=== PATIENT | female | born 1965 | race Caucasian/White ===

== ENCOUNTER 2021-08-15 11:17 | Emergency (ER) | payer OTHER ==
[2021-08-15] MEDS ORDERED: Lactated Ringers 1,000 ML IV ONE (11:44)
[2021-08-15] MEDS ORDERED: Ketorolac 30 MG/ML SDV IVPUSH ONE (11:45)
[2021-08-15] MEDS ORDERED: HYDROmorphone 1 MG/ML Syringe IVPUSH ONE ×2 (11:45→12:59)
[2021-08-15] MEDS ORDERED: Ondansetron 4 MG/2 ML SDV IVPUSH ONE (11:48)
--- NOTE | 2021-08-15 11:50 | EDM.PDOC ---
ED HPI GENERAL MEDICAL PROBLEM - General Chief Complaint: Abdominal Pain Stated Complaint: SEVERE ABDOMINAL PAIN Time Seen by Provider: 08/15/21 11:40 Source of Information: Reports: Patient, RN. Denies: Old Records History Limitations: Reports: Other (no old records) - History of Present Illness INITIAL COMMENTS - FREE TEXT/NARRATIVE: 55 yo female is here with her for abrupt onset of RLQ abdominal pain. Feels a little bloated. No fever or nausea. Has a remote hx of kidney stones. Has had her ovaries removed. Pain is severe. Stools hard and dry and small. Onset: Today, Sudden Onset Date: 08/15/21 Duration: Minutes:, Waxing/Waning Location: Reports: Pelvis (R hemipelvis) Quality: Reports: Stabbing Severity: Severe Improves with: Reports: None Worsens with: Reports: Other (unknown) Context: Reports: Other (See HPI) Associated Symptoms: Reports: No Other Symptoms. Denies: Diaphoresis, Fever/Chills, Nausea/Vomiting Treatments [employer]: Reports: Other (see below) (none) Right Lower Abdomen Pain Score (Numeric/FACES): 10 - Related Data Allergies Allergy/AdvReac Type Severity Reaction Status Date / Time No Known Allergies Allergy Verified 08/15/21 11:29 Home Meds: Home Meds Desvenlafaxine [Pristiq] 100 mg PO BEDTIME 08/15/21 [History] Melatonin 20 mg PO BEDTIME 08/15/21 [History] Verapamil [Calan] 40 mg PO DAILY 08/15/21 [History] traZODone 25 mg PO BEDTIME 08/15/21 [History] Past Medical History HEENT History: Reports: Other (See Below) Other HEENT History: sinus surgery in March 2021 [employer] History: Reports: Neurological History: Reports: CVA - Past Surgical History HEENT Surgical History: Reports: Tonsillectomy Female Surgical History: Reports: Hysterectomy Social & Family History - Tobacco Use Tobacco Use Status *Q: Never Tobacco User - Caffeine Use Caffeine Use: Reports: Soda - Recreational Drug Use Recreational Drug Use: No ED ROS GENERAL - Review of Systems Review Of Systems: See Below Constitutional: Reports: No Symptoms HEENT: Reports: No Symptoms Respiratory: Reports: No Symptoms Cardiovascular: Reports: No Symptoms GI/Abdominal: Reports: No Symptoms : Reports: Other (R hemipelvis pain). Denies: Dysuria, Hematuria Musculoskeletal: Reports: No Symptoms Skin: Reports: No Symptoms ED EXAM, GI/ABD - Physical Exam Exam: See Below Exam Limited By: No Limitations General Appearance: Alert, WD/WN, Mild Distress Eyes: Bilateral: Normal Appearance Ears: Normal External Exam, Normal Canal, Hearing Grossly Normal Nose: Normal Inspection, No Blood Throat/Mouth: Normal Inspection, Normal Lips, Normal Voice, No Airway Compromise Head: Atraumatic, Normocephalic Neck: Normal Inspection Respiratory/Chest: No Respiratory Distress, Lungs Clear, Normal Breath Sounds, No Accessory Muscle Use Cardiovascular: Regular Rate, Rhythm, No Edema GI/Abdominal Exam: Soft, Non-Tender, No Distention. No: Distended, Guarding, Rigid, Rebound, Tender, Hernia Extremities: Normal Inspection Neurological: Alert, Oriented, CN II-XII Intact, Normal Cognition, No Motor/Sensory Deficits Psychiatric: Normal Affect, Normal Mood Skin Exam: Warm, Dry, Intact, Normal Color, No Rash Course - Vital Signs Last Recorded V/S: Last Vital Signs Temp 35.5 C L 08/15/21 11:27 Pulse 71 08/15/21 11:27 Resp 20 08/15/21 11:27 BP 139/78 08/15/21 11:27 Pulse Ox 97 08/15/21 11:27 - Orders/Labs/Meds Orders: Active Orders 24 hr Category Date Time Status Enema [RC] ASDIRECTED Care 08/15/21 15:25 Active Labs: Laboratory Tests 08/15/21 08/15/21 08/15/21 Range/Units 12:25 13:10 13:10 WBC 8.2 (4.5-11.0) K/uL RBC 4.08 (3.30-5.50) M/uL Hgb 12.7 (12.0-15.0) g/dL Hct 38.2 (36.0-48.0) % MCV 94 (80-98) fL MCH 31 (27-31) pg MCHC 33 (32-36) % Plt Count 206 (150-400) K/uL Sodium 138 L (140-148) mmol/L Potassium 3.9 (3.6-5.2) mmol/L Chloride 101 (100-108) mmol/L Carbon Dioxide 31 (21-32) mmol/L Anion Gap 9.9 (5.0-14.0) mmol/L BUN 22 H (7-18) mg/dL Creatinine 0.6 (0.6-1.0) mg/dL Est Cr Clr Drug Dosing 86.60 mL/min Estimated GFR (MDRD) > 60 (>60) Glucose 99 (74-106) mg/dL Calcium 8.7 (8.5-10.1) mg/dL Urine Color Yellow (YELLOW) Urine Appearance Cloudy A (CLEAR) Urine pH >= 9.0 H (5.0-8.0) Ur Specific [place] 1.015 (1.008-1.030) Urine Protein Trace H (NEGATIVE) mg/dL Urine Glucose (UA) Negative (NEGATIVE) mg/dL Urine Ketones Negative (NEGATIVE) mg/dL Urine Occult Blood Negative (NEGATIVE) Urine Nitrite Negative (NEGATIVE) Urine Bilirubin Negative (NEGATIVE) Urine Urobilinogen 0.2 (0.2-1.0) EU/dL Ur Leukocyte Esterase Negative (NEGATIVE) Urine RBC Not seen (0-5) Urine WBC Not seen (0-5) Ur Epithelial Cells Not seen Amorphous Sediment Many Urine Bacteria Not seen Urine Mucus Few Meds: Medications Discontinued Medications Generic Name Dose Route Start Last Admin Trade Name Freq PRN Reason Stop Dose Admin Diphenhydramine HCl 50 mg 08/15/21 14:06 08/15/21 14:11 Diphenhydramine 50 Mg/Ml Sdv IVPUSH 08/15/21 14:07 50 mg ONETIME ONE Administration Hydromorphone HCl 1 mg 08/15/21 11:45 08/15/21 12:07 Hydromorphone 1 Mg/Ml Syringe IVPUSH 08/15/21 11:46 1 mg ONETIME ONE Administration Hydromorphone HCl 1 mg 08/15/21 12:59 08/15/21 13:11 Hydromorphone 1 Mg/Ml Syringe IVPUSH 08/15/21 13:00 1 mg ONETIME ONE Administration Lactated Ringer's 1,000 mls @ 500 mls/hr 08/15/21 11:44 08/15/21 12:04 Ringers, Lactated IV 08/15/21 13:43 500 mls/hr BOLUS ONE Administration Sodium Chloride 70 mls @ 3.5 mls/sec 08/15/21 13:45 08/15/21 14:22 Normal Saline IV 08/15/21 13:46 3.5 mls/sec ASDIRECTED LEONID Administration Iopamidol 87 ml 08/15/21 13:45 08/15/21 14:22 Iopamidol 612 Mg/Ml 100 Ml Bottle IV 08/15/21 13:46 87 ml . DIRECTED LEONID Administration Ketorolac Tromethamine 30 mg 08/15/21 11:45 08/15/21 12:09 Ketorolac 30 Mg/Ml Sdv IVPUSH 08/15/21 11:46 30 mg ONETIME ONE Administration Ondansetron HCl 4 mg 08/15/21 11:48 08/15/21 12:12 Ondansetron 4 Mg/2 Ml Sdv IVPUSH 08/15/21 11:49 4 mg ONETIME ONE Administration Polyethylene Glycol 34 gm 08/15/21 15:26 08/15/21 15:39 Polyethylene Glycol 3350 Powder 17 Gm Packet PO 08/15/21 15:27 34 gm ONETIME ONE Administration Sodium Chloride 10 ml 08/15/21 13:40 08/15/21 14:23 Sodium Chloride 0.9% 10 Ml Syringe FLUSH 08/15/21 13:41 10 ml ONETIME ONE Administration - Radiology Interpretation Free Text/Narrative:: CT abd/pelvis with IV contrast-increased stool only. CT Results Date: 08/15/21 - Re-Assessments/Exams Free Text/Narrative Re-Assessment/Exam: 08/15/21 16:38 no results with enema, wants to go home. Departure - Departure Time of Disposition: 16:39 Disposition: Home, Self-Care 01 Condition: Good Clinical Impression: Chronic constipation - Discharge Information *PRESCRIPTION DRUG MONITORING PROGRAM REVIEWED*: Not Applicable *COPY OF PRESCRIPTION DRUG MONITORING REPORT IN PATIENT [place]: Not Applicable Instructions: Constipation, Adult Referrals: PCP,None [Primary Care Provider] - Forms: ED Department Discharge Additional Instructions: Drink ample fluids and take Miralax at least twice daily. Recheck as needed. High fiber diet. Sepsis Event Note (ED) - Evaluation Sepsis Screening Result: No Definite Risk - Focused Exam Vital Signs: Vital Signs Temp Pulse Resp BP Pulse Ox 08/15/21 11:27 35.5 C L 71 20 139/78 97 - My Orders Last 24 Hours: My Active Orders 08/15/21 15:25 Enema [RC] ASDIRECTED - Assessment/Plan Last 24 Hours: My Active Orders 08/15/21 15:25 Enema [RC] ASDIRECTED
[2021-08-15] MEDS ORDERED: Sodium Chloride 0.9% 10 ML Syringe FLUSH ONE (13:40)
[2021-08-15] MEDS ORDERED: Iopamidol 612 MG/ML 100 ML Bottle IV SCH (13:45)
[2021-08-15] MEDS ORDERED: diphenhydrAMINE 50 MG/ML SDV IVPUSH ONE (14:06)
--- NOTE | 2021-08-15 14:59 | CT ---
Abdomen Pelvis w Cont CLINICAL HISTORY: Pelvic pain COMPARISON: None. TECHNIQUE: Transverse scans were obtained from the base of the lungs to the pubic symphysis following oral contrast and IV infusion of contrast.Auto dosage reduction and iterative reconstructiontechniques employed. FINDINGS: The lung bases are clear. The liver contains an 8 mm cyst in the medial segment of the left lobe of the liver. The gallbladder has a normal appearance. The spleen has a normal size and shape. The pancreas shows no mass or inflammatory change. The adrenal glands appear normal bilaterally . The kidneys show some diffuse medullary blushing bilaterally which may represent some tubular ectasia. The ureters have normal course and caliber. The bladder is empty. The aorta has normal contour. There is no suspicious retroperitoneal adenopathy. The small intestinal configuration is nonacute. There is moderate retained stool in the very redundant colon. There is some mild diverticulosis without evidence of diverticulitis. The appendix is not identified IMPRESSION: Small left lobe hepatic cyst Moderate retained stool in the very redundant colon Medullary blushing in both kidneys may represent tubular ectasia
[2021-08-15] MEDS ORDERED: Polyethylene Glycol 3350 Powder 17 GM Packet PO ONE (15:26)
== END 2021-08-15 17:16 | disposition home or self-care (01) ==
LOC: JP.ED 11:17
DX: K59.09 Other constipation (principal)
CPT/HCPCS: 36415; 74177; 80048; 81001; 85027; 96374; 96375; 96376; 99284; A9270; J1170; J1200; J1885; J2405; J7120; Q9967